=== PATIENT | male | born 1950 | race Asian ===

== ENCOUNTER 2016-12-27 14:11 | Emergency (ER) | payer OTHER ==
[~2016-12-27] VITALS: Ht 152.4 cm; Wt 69.6 kg
[2016-12-27 17:07] LABS: microscopic required? YES; urine erythrocyte NEGATIVE (NEGATIVE)
[2016-12-27 19:12] LABS: BASOPHIL % 0.5 % (0-2); PLATELET COUNT 297 x10^3mcL (130-400); RED CELL DISTRIBUTION WIDTH 13.6 % (11.5-14.5)
[2016-12-27 19:19] LABS: CALCIUM 9.1 mg/dL (8.5-10.1); CARBON DIOXIDE 27.5 mmol/L (21-32); CHLORIDE SERUM 100 mmol/L (98-107); CREATININE SERUM 1.1 mg/dL (0.7-1.3); GFR1 > 60 mL/min; GLUCOSE SERUM 100 mg/dL (74-106); POTASSIUM SERUM 3.9 mmol/L (3.5-5.1); SODIUM SERUM 137 mmol/L (136-145)
[2016-12-27 19:23] LABS: ALBUMIN 4.1 g/dL (3.4-5.0); ALKALINE PHOSPHATASE 66 U/L (46-116); ALT/SGPT 18 U/L (16-63); AST/SGOT 21 U/L (15-37); BILIRUBIN TOTAL 0.7 mg/dL (0.20-1.00); LIPASE 305 IU/L (73-393); TOTAL PROTEIN, SERUM 7.9 g/dL (6.4-8.2)
[2016-12-27 20:10] VITALS: BP 138/73
== END 2016-12-27 20:10 | disposition home or self-care (01) ==
LOC: ED 14:11
PROVIDERS: Emergency Medicine
DX: K21.9 Gastro-esophageal reflux disease without esophagitis (principal); E86.0 Dehydration
CPT/HCPCS: C9113; J2405; J7030

== ENCOUNTER 2018-10-01 11:41 | Observation (INO) | payer OTHER ==
[~2018-10-01] VITALS: Ht 152.4 cm; Wt 69.4 kg
--- NOTE | 2018-10-01 11:51 | NUR ---
EKG IN PROGRESS.
--- NOTE | 2018-10-01 12:19 | NUR ---
PT REPORT GENERALIZE CHEST PAIN 5/10 FOR 1 WEEK AND IT GOT WORSE LAST NIGHT. PT DENIES CHEST PAIN RADIATES DOWN ARM. PT POINTED TO CHEST AREA AND REPORTED PRESSURE PAIN.
--- NOTE | 2018-10-01 13:11 | NUR ---
PT OBSERVED RESTING, EYES CLOSED ON GURNEY WITH HOB RAISED. PT IS EASILY AROUSABLE. PT IN NAD. BREATHING EVEN AND UNLABORED. CM AND O2 MONITOR IN PLACE. WILL CONTINUE TO MONITOR.
[2018-10-01 13:26] LABS: BASOPHIL % 0.3 % (0-2); PLATELET COUNT 331 x10^3mcL (130-400)
[2018-10-01 13:34] LABS: CALCIUM 8.8 mg/dL (8.5-10.1); CHLORIDE SERUM 102 mmol/L (98-107); CREATININE SERUM 1.1 mg/dL (0.7-1.3); GFR1 > 60 mL/min; GLUCOSE SERUM 122 mg/dL (74-106); POTASSIUM SERUM 3.8 mmol/L (3.5-5.1); SODIUM SERUM 135 mmol/L (136-145)
[2018-10-01 13:39] LABS: ALBUMIN 3.4 g/dL (3.4-5.0); ALKALINE PHOSPHATASE 57 U/L (46-116); ALT/SGPT 14 U/L (16-63); AST/SGOT 22 U/L (15-37); BILIRUBIN TOTAL 0.42 mg/dL (0.20-1.00); LIPASE 258 IU/L (73-393)
--- NOTE | 2018-10-01 13:53 | NUR ---
XRAY AT BEDSIDE
--- NOTE | 2018-10-01 13:58 | NUR ---
EDUCATED PT ON IMPORTANCE OF OBTAINING URINE SAMPLE. PT UNABLE TO URINATE AT THIS TIME. PT VERBALIZED UNDERSTANDING OF PLAN OF CARE. WILL CONTINUE TO MONITOR.
--- NOTE | 2018-10-01 15:22 | NUR ---
PT ABLE TO URINATE LARGE AMOUNT. PT IN NAD. BREATHING EVEN AND UNLABORED. PT A&OX4, SPEAKING FULL CLEAR SENTENCES. CM AND O2 MONITOR IN PLACE. WILL CONTINUE TO MONITOR.
[2018-10-01 15:34] LABS: AMPHETAMINE QUAL UR NONE DETECTED (See below)
[2018-10-01] MEDS ORDERED: AMLODIPINE BESY10 M2 PO (15:37)
[2018-10-01] MEDS ORDERED: ZESTRIL20 MG PO (15:37)
[2018-10-01] MEDS ORDERED: TERAZOSIN HCL2 MG PO (15:38)
[2018-10-01] MEDS ORDERED: HYDROCHLOROTHIA25 MG PO (15:38)
[2018-10-01] MEDS ORDERED: FINASTERIDE5 M1 PO (15:38)
[2018-10-01] MEDS ORDERED: GEMFIBROZIL600 MG PO (15:39)
[2018-10-01] MEDS ORDERED: ZOCOR20 MG PO (15:39)
[2018-10-01] MEDS ORDERED: ASPIRIN ADULT L81 M5 PO (15:40)
[2018-10-01] MEDS ORDERED: D3-50001 TAB PO (15:41)
[2018-10-01] MEDS ORDERED: NAPROXEN500 MG PO (15:41)
[2018-10-01] MEDS ORDERED: GOOD NEIGHBOR P20 M2 PO (15:41)
[2018-10-01] MEDS ORDERED: COMBIGAN5 ML OP (15:41)
--- NOTE | 2018-10-01 16:17 | NUR ---
PT OBSERVED RESTING ON GURNEY WITH EYES CLOSED. PT IN NAD. BREATHING EVEN AND UNLABORED. PT EASILY AROUSABLE. CM AND [address] JOLLY AT BEDSIDE SPEAKING WITH PATIENT.
--- NOTE | 2018-10-01 17:50 | NUR ---
PT OBSERVED LAYING ON GURNEY IN CELL PHONE. PT IN NAD. BREATHING EVEN AND UNLABORED. PT A&OX4, SPEAKING FULL CLEAR SENTENCES. CM AND O2 MONITOR IN PLACE. WILL CONTINUE TO MONITOR.
--- NOTE | 2018-10-01 18:02 | NUR ---
REPORT GIVEN TO SUSHIL LYNNE.
--- NOTE | 2018-10-01 18:17 | NUR ---
PT TRANSFERED TO ROOM VIA GURNEY AT THIS TIME. PT IN NAD. BREATHING EVEN AND UNLABORED. PT ACCOMPANIED BY RN AND EMT. PT VERBALIZED UNDERSTANDING OF PLAN OF CARE. PT A&OX4, SPEAKING FULL CLEAR SENTENCES. BELONGINGS SENT WITH PT.
--- NOTE | 2018-10-01 18:33 | NUR ---
RECEIVED PT VIA [facility] FROM E/D, ACCOMPANIED BY RN AND TRANSPORTER. PT A/A/O X 4, CALM, COOPERATIVE TO CARE AT THIS TIME. PT ABLE TO AMBULATE FROM GUERNEY TO BED WITHOUT GAIT OR BALANCE IMPAIRMENT. ON TELE # 13, NSR, HR 70, DENIES CHEST PAIN OR DISCOMFORT AT THIS TIME. NO ACUTE RESPIRATORY DISTRESS NOTED. ABD SOFT, ROUND, NON-TENDER, NORMOACTIVE BOWEL SOUNDS X 4 QUADS, LAST BM 09/30/18, DIARRHEA. VOIDS FREELY, C/O FREQUENCY. IV SITE RFA 20, CDI. ORIENTED PT TO ROOM, BED CONTROLS, CALL LIGHT SYSTEM. WILL ENDORSE MAGED HEARD.
--- NOTE | 2018-10-01 19:15 | NUR ---
RECIEVED REPORT FROM DAY SHIFT NURSE. NURSING UPDATES RESUMED CARE OF PT. PT A&OX4. ON RA BREATHING E/U. NSR. URINARY FREQUENCY. IV 20G R FA INFUSING W/ NS W/ DRESSING C/D/I. SKIN WARM/DRY/INTACT. PT DENIES CP.
[2018-10-01 19:23] VITALS: BP 132/86
[2018-10-01 20:36] VITALS: BP 107/62
--- NOTE | 2018-10-01 21:30 | NUR ---
PT RESTING CALMLY IN BED. CALL DAWSON WITHIN REACH BED IN LOWEST POSITION. NO ACUTE CHANGES. WILL CONT TO MONITOR.
--- NOTE | 2018-10-02 00:02 | NUR ---
FLUIDS FINISHED DISCONNECTED AND SALINE LOCKED R HAND IV. PT TOLERATED WELL. NO S/S OF INFECTION/INFILTRATION.
--- NOTE | 2018-10-02 00:55 | NUR ---
PT RESTING CALMLY IN BED. NO ACUTE CHANGES/NO DISTRESS. CALL DAWSON WITHIN REACH BED IN LOWEST POSITION WILL CONT TO MONITOR.
--- NOTE | 2018-10-02 01:55 | NUR ---
PT RESTING CALMLY IN BED. NO ACUTE CHANGES. CALL DAWSON WITHIN REACH, BED IN LOWEST POSITION. WILL CONT TO MONITOR.
[2018-10-02 05:43] VITALS: BP 107/69
--- NOTE | 2018-10-02 06:00 | NUR ---
PT RESTING IN BED CALMLY. NO ACUTE CHANGES. CALL DAWSON WITHIN REACH, BED IN LOWEST POSITION. WILL ENDORSE TO ONCOMING NURSE
[2018-10-02 06:45] LABS: CHOLESTEROL/HDL RATIO 3.2
--- NOTE | 2018-10-02 07:30 | NUR ---
PT IS AAOX4. RESP EVEN AND UNLABORED. LUNG SOUNDS CTA. TELE [address] READING NSR. PT DENIES CHEST PAIN, PRESSURE, OR PALPITATIONS. ABDOMEN SOFT, NONTENDER, NONDISTENED. BOWEL SOUNDS ACTIVE. PERIPHERAL PULSES PALPABLE. NO EDEMA NOTED. SKIN CDI. IV CATH TO RFA N/S LOCKED. SITE WNL. CALL LIGHT WITHIN REACH. BED IN LOWEST POSITION.
--- NOTE | 2018-10-02 09:01 | NUR ---
DR. GALEANA AND MEDICAL TEAM MET WITH PT AND DISCUSSED POC. PT IS TO D/C TODAY AND FOLLOW UP WITH PCP. DUE MEDS GIVEN. B/P 114/67, HR 89BPM. FLUIDS ENCOURAGED. CALL LIGHT WITHIN REACH.
[2018-10-02 09:16] VITALS: BP 114/67
[2018-10-02 11:53] VITALS: BP 114/67
--- NOTE | 2018-10-02 12:25 | NUR ---
PT IS SITTING UP IN BED EATING LUNCH. RESP EVEN AND UNLABORED. DENIES PAIN OR DISCOMFORT. NO DISTRESS NOTED. BED IN LOW POSITION. CALL LIGHT WITHIN REACH. SAFETY AND COMFORT MEASURES PROVIDED.
--- NOTE | 2018-10-02 13:40 | NUR ---
PT DISCHARGED TO HOME IN NO DISTRESS. DISCHARGE ORDERS REVIEWED. ALL FORMS SIGNED. IV CATH TO RFA REMOVED INTACT. SITE COVERED WITH GAUZE AND BANDAID. TELE 13 REMOVED AND RETURNED TO SALES ACCOUNT LEADER. VS: 98.4, 62, 18, 136/79, 98% ON R/A. PT DENIES PAIN OR DISCOMFORT AT TIME OF DISCHARGED. ALL PERSONAL BELONGINGS TAKEN HOME.
[2018-10-02 14:08] VITALS: BP 136/79
== END 2018-10-02 13:40 | disposition home or self-care (01) | DRG 392 ==
LOC: ED 11:41 → DU 17:31
PROVIDERS: Emergency Medicine; ADMIT Internal Medicine Pulmonary Disease
DX: R10.13 Epigastric pain (principal); R07.89 Other chest pain; E86.0 Dehydration; I10 Essential (primary) hypertension; E78.5 Hyperlipidemia, unspecified; N40.0 Benign prostatic hyperplasia without lower urinary tract symptoms; Z79.82 Long term (current) use of aspirin
CPT/HCPCS: G0378; J7030; Q0092

== ENCOUNTER 2018-10-19 09:01 | Inpatient (IN) | payer OTHER ==
[~2018-10-19] VITALS: Ht 160 cm; Wt 70.3 kg
[~2018-10-19 09:01] MED LIST: AMLODIPINE BESY10 M2 PO; ASPIRIN ADULT L81 M5 PO; COMBIGAN5 ML OP; D3-50001 TAB PO; FINASTERIDE5 M1 PO; GEMFIBROZIL600 MG PO; GOOD NEIGHBOR P20 M2 PO; HYDROCHLOROTHIA25 MG PO; NAPROXEN500 MG PO; TERAZOSIN HCL2 MG PO; ZESTRIL20 MG PO; ZOCOR20 MG PO
[2018-10-19 09:04] VITALS: Ht 160 cm; Wt 70.3 kg
[2018-10-19 09:47] LABS: BASOPHIL % 0.6 % (0-2); RED CELL DISTRIBUTION WIDTH 14.4 % (11.5-14.5)
[2018-10-19 09:48] LABS: PLATELET COUNT 426 x10^3mcL (130-400)
[2018-10-19 10:27] LABS: CALCIUM 7.9 mg/dL (8.5-10.1); CARBON DIOXIDE 25.3 mmol/L (21-32); CHLORIDE SERUM 100 mmol/L (98-107); CREATININE SERUM 1.3 mg/dL (0.7-1.3); GFR1 59 mL/min; GLUCOSE SERUM 114 mg/dL (74-106); POTASSIUM SERUM 3.5 mmol/L (3.5-5.1); SODIUM SERUM 135 mmol/L (136-145)
[2018-10-19 10:32] LABS: ALBUMIN 3.2 g/dL (3.4-5.0); ALKALINE PHOSPHATASE 53 U/L (46-116); ALT/SGPT 26 U/L (16-63); AST/SGOT 22 U/L (15-37); BILIRUBIN TOTAL 0.27 mg/dL (0.20-1.00); CHOLESTEROL 133 mg/dL (<200); TOTAL PROTEIN, SERUM 6.6 g/dL (6.4-8.2)
[2018-10-19 13:59] VITALS: BP 127/65
[2018-10-19 17:57] VITALS: BP 118/72
[2018-10-19 19:55] VITALS: BP 105/61
[2018-10-20 00:14] LABS: microscopic required? NO
[2018-10-20 00:36] LABS: urine erythrocyte NEGATIVE (NEGATIVE)
[2018-10-20 01:25] LABS: AMPHETAMINE QUAL UR NONE DETECTED (See below)
[2018-10-20 06:18] LABS: RED CELL DISTRIBUTION WIDTH 14.2 % (11.5-14.5)
[2018-10-20 06:35] LABS: CALCIUM 8.2 mg/dL (8.5-10.1); CHLORIDE SERUM 104 mmol/L (98-107); GFR1 > 60 mL/min; GLUCOSE SERUM 102 mg/dL (74-106); POTASSIUM SERUM 3.2 mmol/L (3.5-5.1); SODIUM SERUM 141 mmol/L (136-145)
[2018-10-20 07:08] LABS: PLATELET COUNT 407 x10^3mcL (130-400)
[2018-10-20 08:59] VITALS: BP 119/70
[2018-10-20] MEDS ORDERED: BISMUTH SUBSALICYLATE (13:24)
[2018-10-20] MEDS ORDERED: CLARITHROMYCIN500 M1 PO (13:25)
[2018-10-20] MEDS ORDERED: FLA500 PO (13:25)
[2018-10-20] MEDS ORDERED: GOOD NEIGHBOR P20 M2 PO (13:28)
[2018-10-20 14:33] VITALS: BP 97/64
== END 2018-10-20 18:29 | disposition home or self-care (01) | DRG 378 ==
LOC: ED 09:01 → DU 12:26
PROVIDERS: Internal Medicine; Specialist; ADMIT Internal Medicine
PROC: 0DB68ZX Excision of Stomach, Via Natural or Artificial Opening Endoscopic, Diagnostic (ICD-10-PCS; principal; 2018-10-20 11:30)
DX: K27.4 Chronic or unspecified peptic ulcer, site unspecified, with hemorrhage (principal); N17.9 Acute kidney failure, unspecified; D50.0 Iron deficiency anemia secondary to blood loss (chronic); E86.0 Dehydration; K26.9 Duodenal ulcer, unspecified as acute or chronic, without hemorrhage or perforation; K25.4 Chronic or unspecified gastric ulcer with hemorrhage; I12.9 Hypertensive chronic kidney disease with stage 1 through stage 4 chronic kidney disease, or unspecified chronic kidney disease; N18.3 Chronic kidney disease, stage 3 (moderate); E78.5 Hyperlipidemia, unspecified; Z79.82 Long term (current) use of aspirin; Z68.27 Body mass index [BMI] 27.0-27.9, adult; Z98.49 Cataract extraction status, unspecified eye
CPT/HCPCS: 43235; C9113; G0480; J1200; J1610; J2250; J2310; J3010; J3490; J7030; J7042; Q0092

== ENCOUNTER 2020-01-26 11:41 | Inpatient (IN) | payer OTHER ==
[~2020-01-26] VITALS: Ht 165.1 cm; Wt 67.4 kg
[~2020-01-26 11:41] MED LIST changes: +BISMUTH SUBSALICYLATE; +CLARITHROMYCIN500 M1 PO; +FLA500 PO
[2020-01-26 12:12] VITALS: Ht 165.1 cm; Wt 67.4 kg
--- NOTE | 2020-01-26 12:57 | NUR ---
ED ASSESSMENT DONE AT THIS TIME. DR. FISCHER AT BEDSIDE EVALUATES PT.
[2020-01-26 13:28] LABS: BASOPHIL % 0.2 % (0-2); PLATELET COUNT 219 x10^3mcL (130-400); RED CELL DISTRIBUTION WIDTH 16.9 % (11.5-14.5)
[2020-01-26 13:41] LABS: BILIRUBIN TOTAL 0.42 mg/dL (0.20-1.00); C REACTIVE PROTEIN 0.9 mg/dL (<=0.9); CALCIUM 7.9 mg/dL (8.5-10.1); POTASSIUM SERUM 3.1 mmol/L (3.5-5.1); TOTAL PROTEIN, SERUM 7.6 g/dL (6.4-8.2)
--- NOTE | 2020-01-26 14:45 | NUR ---
IV BOLUS ALMOST INFUSED. PT AWAKE, ALERT. COOPERATIVE.
--- NOTE | 2020-01-26 15:03 | NUR ---
PT STOOL UP TO VOID INTO URINAL, BECAME A BIT SHORT WINDED. SATURATIONS REMAINED NORMAL @ 99 - 100 %
[2020-01-26 15:53] LABS: microscopic required? YES; urine erythrocyte NEGATIVE (NEGATIVE)
--- NOTE | 2020-01-26 16:43 | NUR ---
DOZING PEACEFULLY AT THIS TIME. VITAL SIGNS STABLE.
--- NOTE | 2020-01-26 18:10 | NUR ---
PT TRANSPORTED TO BED 9 FOR FURTHER CARE. REPORT GIVEN TO MAGED MCCAULEY
[2020-01-26 19:12] LABS: AMPHETAMINE QUAL UR NONE DETECTED (See below)
--- NOTE | 2020-01-26 19:25 | NUR ---
RECEIVED REPORT FROM JARVIS LYNNE, I WILL ASSUME CARE OF PT AT THIS TIME. PT AAOX4, NAD NOTED. PT VSS. WAITING ROOM ASSIGNMENT, WILL CONTINUE TO MONITOR PT.
--- NOTE | 2020-01-26 20:09 | NUR ---
RT AT BEDSIDE FOR ABGS
--- NOTE | 2020-01-26 20:29 | NUR ---
GAVE HAND OFF REPORT TO ALEXA LYNNE FOR FURTHER CARE OF PT. WILL BE TAKING PT UPSTAIRS SOON.
--- NOTE | 2020-01-26 20:35 | NUR ---
RECEIVED PATIENT FROM ED VIA [facility]ES BY NURSE. PATIENT IS AAOX4 [place] SPEAKING, ABLE TO COMMUNICATE WITH PATIENT VIA MINUTE CLERK PHONE AND NURSE REYES ASSISTED. PATIENT IV LW PATENT, FLUSHED WELL. TELE #43 SR ON MONITOR DENIES CHEST PAIN. PATIENT REPORTS SOB ON EXCERTION AFTER WALKING TO THE BATHROOM. PATIENT O2SAT 98% ON RA WITH NO RESP DISTRESS. AMBULATORY WITH UNSTEADY GAIT. SAFETY PRECAUTIONS IN PLACE. WILL MONITOR.
--- NOTE | 2020-01-26 21:45 | NUR ---
PATIENT IN BED RESTING WITH EYES CLOSED, SNORING. NO DISTRESS NOTED. TELE #43 NSR, HR 61 NOTED, APPEAR COMFORTABLE. CALL LIGHT WITHIN REACH.
[2020-01-26 21:46] VITALS: BP 123/68
--- NOTE | 2020-01-27 01:30 | NUR ---
DR AGRAWAL MADE AWARE PATIENT CO2 RESULT OF 13, PER DR AGRAWAL TO CONTINUE TO MONITOR PATIENT. NO NEW ORDERS AT THIS TIME.
[2020-01-27 05:58] VITALS: BP 98/68
--- NOTE | 2020-01-27 06:29 | NUR ---
PATIENT SLEPT MOST OF THE NIGHT WITH NO ACUTE DISTRESS NOTED. BREATHING EVEN AND UNLABORED ON RA WITH NO SOB NOTED. AMBULATORY WITH BRP. IV PATENT, INFUSING WELL WITH NO SIGNS OF INFILTRATION. MEDICATED PER EMAR. ALL NEEDS MET. WILL CONTINUE TO MONITOR.
--- NOTE | 2020-01-27 07:19 | NUR ---
PATIENT STABLE. ENDORSED CARE TO KODY LYNNE, ALL QUESTONS ADDRESSED.
--- NOTE | 2020-01-27 07:30 | NUR ---
RECEIVED PT FROM PM NURSE. PATIENT RESTING COMFORTABLY AT THIS TIME WITH NO FACIAL DISTRESS. PT IS A/O X4. TAMAZIGHT SPEAKING. DIMINISHED LUNG SOUNDS DURING AUSCULTATION. BREATHING E/U ON RA. TELE #43. DENIES CP/PRESSURE. PULSE EVEN AND PALPABLE. NO EDEMA NOTED. ACTIVE BS X4 QUAD. ABD SOFT AND ROUND. LBM 01/26/20. DENIES N/V/D. VOIDS FREELY. GENERALIZED WEAKNESS NOTED. SKIN INTACT. NO C/O PAIN AT THIS TIME. IV ON L WRIST CURRENTLY INFUSING NS 100CC/HR. BED AT THE LOWEST POSITION. CALL BUTTON WITHIN REACH. WILL CONTINUE TO MONITOR.
[2020-01-27 07:40] VITALS: BP 135/63
[2020-01-27 08:14] LABS: BASOPHIL % 0.2 % (0-2); PLATELET COUNT 214 x10^3mcL (130-400)
[2020-01-27 08:29] LABS: CALCIUM 7.8 mg/dL (8.5-10.1); CARBON DIOXIDE 11.2 mmol/L (21-32); CREATININE SERUM 1.7 mg/dL (0.7-1.3); PHOSPHOROUS 3.7 mg/dL (2.5-4.9); POTASSIUM SERUM 3.2 mmol/L (3.5-5.1)
[2020-01-27 13:30] VITALS: BP 124/68
--- NOTE | 2020-01-27 19:30 | NUR ---
RECEIVED PATIENT REPORT FROM KODY LYNNE. PATIENT IS AAOX4 [place] SPEAKING LIMITED [place]. PATIENT ON THE PHONE WITH SON AT THIS TIME. PATIENT DENIES ANY PAIN/DISCOMFORT. PATIENT ON RA WITH NO SOB, NO RESP DISTRESS. TELE # 43 SR ON MONITOR HR 61. PATIENT DENIES CHEST PAIN. IV LW PATENT INFUSING WELL, NO SIGNS OF INFILTRATION. CALL BUTTON WITHIN REACH. SAFETY PRECAUTIONS IN PLACE. WILL CONTINUE TO MONITOR.
[2020-01-27 20:34] VITALS: BP 119/63
--- NOTE | 2020-01-28 04:03 | NUR ---
PATIENT RESTING, BREATHING EVEN AND UNLABORED ON RA WITH NO SOB NOTED. IV INFUSING WELL, NO SIGNS OF INFILTRATION. SAFETY PRECAUTIONS IN PLACE. WILL MONITOR.
[2020-01-28 06:00] VITALS: BP 131/76
--- NOTE | 2020-01-28 07:18 | NUR ---
PATIENT STABLE. ENDORSED CARE TO DANNIE LYNNE, ALL QUESTIONS ADDRESSED.
--- NOTE | 2020-01-28 07:40 | NUR ---
RECEIVED PATIENT IN BED AWAKE, ALERT, ORIENTED. IN ROOM AIR, NO RESPIRATORY DISTRESS. DENIES PAIN. GENERALIZED WEAKNESS, AMBULATES SLOWLY WITH STEADY GAIT. IV SITE WITH SWELLING. WILL START A NEW IV LINE. PATIENT SPEAKS [place] BUT HE UNDERSTANDS SOME CITIZEN OF [place] AND HE IS ABLE TO MAKE NEEDS KNOWN. CALL LIGHT WITHIN REACH. WILL CONTINUE TO MONITOR PATIENT AND MAINTAIN SAFETY.
[2020-01-28 08:00] VITALS: BP 129/72
[2020-01-28 08:14] LABS: BASOPHIL % 0.2 % (0-2); PLATELET COUNT 227 x10^3mcL (130-400)
[2020-01-28 08:45] LABS: CALCIUM 7.7 mg/dL (8.5-10.1); CARBON DIOXIDE 15.1 mmol/L (21-32); CREATININE SERUM 1.3 mg/dL (0.7-1.3); MAGNESIUM 2.7 mg/dL (1.8-2.4); PHOSPHOROUS 2.4 mg/dL (2.5-4.9)
[2020-01-28 08:58] LABS: RED CELL DISTRIBUTION WIDTH 16.9 % (11.5-14.5)
[2020-01-28 09:01] LABS: POTASSIUM SERUM 2.8 mmol/L (3.5-5.1)
--- NOTE | 2020-01-28 09:10 | NUR ---
INFORMED DR GAMA THAT PATIENT K-2.8. NO NEW ORDERS RECEIVED AT THIS TIME.
--- NOTE | 2020-01-28 09:58 | NUR ---
PT STATED HE TOOK ONE OF HIS MEDICATIONS FROM HOME. INFORMED DANNIE SINGH RN. USED PACKAGE LINE OPERATOR PHONE (PACKAGE LINE OPERATOR #[phone]): INSTRUCTED PT NOT TO TAKE ANY MEDICATIONS UNLESS GIVEN BY RN. PT VERBELIZED UNDERSTANDING. ANSWERED ALL QUESTIONS. DENIES ANY OTHER QUESTIONS OR CONCERNS AT THIS TIME.
--- NOTE | 2020-01-28 10:55 | NUR ---
ENDORSED CARE TO SUZY-MAGED. ALL QUESTIONS ANSWERED.
--- NOTE | 2020-01-28 11:05 | NUR ---
RECEIVED PT FROM DANNIE LYNNE. PT REMAINS STABLE AT THIS TIME. PT AAOX4. TELE# 43 PT. PT DENIES CHEST PAIN AT THIS TIME. IV TO RFA. NS RUNNING @ 100 ML/HR. IV CDI AND PATENT. PT IS STABLE W/ NO DISTRESS NOTED AT THIS TIME. ALL COMFORT AND SAFETY MEASURES IN PLACE. BED IN LOW POSITION, 2 SIDE RAILS UP. CALL LIGHT WITH IN REACH. ALL QUESTIONS AND CONCERNS ADDRESSED. WILL CONTINUE TO MONITOR PT.
[2020-01-28 12:30] VITALS: BP 151/80
--- NOTE | 2020-01-28 13:00 | NUR ---
DR MILLER NOTIFIED ABOUT PT FAMILY REQUESTING TO SPEAK TO . ALL QUESTIONS AND CONCERNS ADDRESSED. ALL NEEDS MET AT THIS TIME. WILL CONTINUE TO MONITOR PT.
[2020-01-28 16:00] VITALS: BP 136/66
--- NOTE | 2020-01-28 18:15 | NUR ---
PT REMAINS STABLE W/ NO ACUTE CHANGES TO STATUS. ALL QUESTIONS AND CONCERNS ADDRESSED. ALL NEEDS MET AT THIS TIME. WILL CONTINUE TO MONITOR PT.
[2020-01-28 19:08] LABS: CALCIUM 7.6 mg/dL (8.5-10.1); CARBON DIOXIDE 16.4 mmol/L (21-32); CREATININE SERUM 1.7 mg/dL (0.7-1.3); POTASSIUM SERUM 3.2 mmol/L (3.5-5.1)
--- NOTE | 2020-01-28 19:20 | NUR ---
REPORT GIVEN TO MOJGAN LYNNE. PT REMAIN STABLE THROUGHOUT MY SHIFT. ALL QUESTIONS AND CONCERNS ADDRESSED. ALL NEEDS MET AT THIS TIME. ALL CARES ENDORSED.
[2020-01-28 21:59] VITALS: BP 147/65
--- NOTE | 2020-01-29 02:27 | NUR ---
@ 1999 A/A/O X4.DENIES ANY DISCOMFORT @ THIS TIME.DENIES SOB.IVF 1/2NS @ 125 ML/HR INFUSING WELL.INSTRUCTED TO USE CALL LIGHT NEEDED;WITHIN REAC. AFEBRILE.BP 147/65 MM HG.O2 SAT ON RA 98%.
--- NOTE | 2020-01-29 02:32 | NUR ---
@ 2210 IVF CHANGED TO D5W + 50 MEQ NAHC3 @ 125 ML/HR INFUSING WELL ON HIS RFA.
--- NOTE | 2020-01-29 02:35 | NUR ---
@ 0000 RESTING COMFORTABLY N NO ACUTE DISTRESS.CALL LIGHT WITHIN REACH.
--- NOTE | 2020-01-29 02:36 | NUR ---
@ 0200 RESTING COMFORTABLY IN NO ACUTE DISTRESS.IVF INFUSING WELL.
--- NOTE | 2020-01-29 04:42 | NUR ---
@ 0400 RESTING COMFORTABLY IN NO ACUTE DISTRESS.IVF INFUSING WELL.
[2020-01-29 05:45] VITALS: BP 130/74
--- NOTE | 2020-01-29 07:15 | NUR ---
RECEIVED PT FROM MOJGAN LYNNE. PT IS AAOX4. PT ON TELE #43, DENIES CHEST PAIN. PT ON RA W/ NO SOB OR DISTRESS. IV TO RFA. SODIUM BICARB RUNNING AT 125 ML/HR. IV CDI AND PATENT. PT IS STABLE WITH NO DISTRESS NOTED AT THIS TIME. ALL SAFETY AND COMFORT MEASURES IN PLACE. BED IN LOW POSITION, 2 SIDE RAILS UP. CALL LIGHT WITH IN REACH. ALL QUESTIONS AND CONCERNS ADDRESSED. WILL CONTINUE TO MONITOR PT.
--- NOTE | 2020-01-29 07:41 | NUR ---
@ 0675 ENDORSED A/A/O X4 IN NO ACUTE DISTRESS.IVF INFUSING WELL.SAFETY MAINTAINED.
[2020-01-29 07:56] LABS: BASOPHIL % 0.3 % (0-2); PLATELET COUNT 222 x10^3mcL (130-400)
--- NOTE | 2020-01-29 08:00 | NUR ---
DR MILLER NOTIFIED ABOUT PT K+: 2.8. AWAITING ORDERS. ALL QUESTIONS AND CONCERNS ADDRESSED. ALL NEEDS MET AT THIS TIME. WILL CONTINUE TO MONITOR PT.
[2020-01-29 08:11] LABS: BILIRUBIN TOTAL 0.5 mg/dL (0.20-1.00); CALCIUM 7.9 mg/dL (8.5-10.1); CARBON DIOXIDE 17.6 mmol/L (21-32); CREATININE SERUM 1.3 mg/dL (0.7-1.3); TOTAL PROTEIN, SERUM 6.6 g/dL (6.4-8.2)
[2020-01-29 08:27] VITALS: BP 153/78
[2020-01-29 08:28] LABS: ALBUMIN 3.3 g/dL (3.4-5.0); POTASSIUM SERUM 2.8 mmol/L (3.5-5.1)
[2020-01-29 08:32] LABS: RED CELL DISTRIBUTION WIDTH 17.2 % (11.5-14.5)
--- NOTE | 2020-01-29 08:32 | NUR ---
RECEIVED CALL FROM LAB ABOUT POTASSIUM 2.8. DR MILLER NOTIFIED. NO FURTHER ORDERS RECEIVED. ALL QUESTIONS AND CONCERNS ADDRESSED. ALL NEEDS MET AT THIS TIME. WILL CONTINUE TO MONITOR PT.
[2020-01-29 12:51] VITALS: BP 141/77
[2020-01-29] MEDS ORDERED: HYT5 PO (13:17)
[2020-01-29] MEDS ORDERED: PROT40I PO (13:18)
[2020-01-29] MEDS ORDERED: HYDROCHLOROTH12.5 M3 PO (13:24)
[2020-01-29] MEDS ORDERED: AMLODIPINE BESY10 M2 PO (13:39)
--- NOTE | 2020-01-29 15:06 | NUR ---
IN TO SEE PT. PT REMAINS STABLE W/ NO ACUTE CHANGES TO STATUS. ALL QUESTIONS AND CONCERNS ADDRESSED. ALL NEEDS MET AT THIS TIME WILL CONTINUE TO MONITOR PT.
[2020-01-29 18:09] VITALS: BP 141/77
--- NOTE | 2020-01-29 18:45 | NUR ---
DC INSTRUCTIIONS GIVEN TO PT AND SON VIA TELEPHONE. PT AND PT'S SON VERBALIZED UNDERSTANDING OF INSTRUCTIONS. ALL QUESTIONS AND CONCERNS ADDRESSED. ALL NEEDS MET AT THIS TIME. ID BANDS REMOVED. IV REMOVED W/ CATHETER INTACT. DRESSING APPLIED. TELE MONITOR REMOVED AND RETURNED TO STATION. ALL BELONGINGS SENT HOME W/ PT. PT DC IN STABLE CONIDITION.
== END 2020-01-29 18:47 | disposition home or self-care (01) | DRG 682 ==
LOC: ED 11:41 → DU 15:11
PROVIDERS: Emergency Medicine; Internal Medicine; ADMIT Family Medicine; ATTEND Family Medicine
DX: N17.0 Acute kidney failure with tubular necrosis (principal); G93.41 Metabolic encephalopathy; E87.2 Acidosis; E78.5 Hyperlipidemia, unspecified; N18.3 Chronic kidney disease, stage 3 (moderate); I12.9 Hypertensive chronic kidney disease with stage 1 through stage 4 chronic kidney disease, or unspecified chronic kidney disease; H40.9 Unspecified glaucoma; E87.6 Hypokalemia; Z79.899 Other long term (current) drug therapy
CPT/HCPCS: 36600; 85378; C9113; G0378; J1644; J3490; J7030; Q0092